=== PATIENT | male | born 1940 | race Caucasian/White ===

== ENCOUNTER 2017-05-25 09:56 | Emergency (ER) | payer MEDICARE ==
[2017-05-25 10:37] LABS: BASOPHILS 0.2 % (0-2); HEMATOCRIT 42.6 % (42.0-54.0); HEMOGLOBIN 14.4 g/dL (13.5-17.5); IMMATURE GRANULOCYTES 0.2 % (0-5); MCH 31.1 pg (26.0-34.0); MCHC 33.8 g/dL (31.0-37.0); MEAN PLATELET VOLUME 10.1 fL (7.4-10.4); NEUTROPHILS 79.6 % (40-80); PLATELET COUNT 168 10x3/uL (130-400); RBC 4.63 10x6/uL (4.20-6.10); RDW 13.2 % (11.5-14.5); WBC 4.8 10x3/uL (4.8-10.8)
[2017-05-25 10:45] LABS: APTT 32.4 SECONDS (22.8-39.4); INR 2.06 (0.85-1.17); PROTIME 23.3 SECONDS (11.6-15.0)
[2017-05-25 10:53] LABS: ALBUMIN 3.1 g/dL (3.4-5.0); ALKALINE PHOSPHATASE 69 U/L (46-116); ALT (SGPT) 24 U/L (10-68); BILIRUBIN - TOTAL 0.47 mg/dL (0.2-1.3); CALC OSMOLALITY 278 mosm/kg (275-300); CALCIUM 8.9 mg/dL (8.5-10.1); CARBON DIOXIDE 26.7 mmol/L (21.0-32.0); CHLORIDE - SERUM 102 mmol/L (98-107); CREATININE - SERUM 0.9 mg/dL (0.6-1.3); GLUCOSE 137 mg/dL (74-106); POTASSIUM - SERUM 4.7 mmol/L (3.5-5.1); PROTEIN - SERUM 6.8 g/dL (6.4-8.2); SODIUM 137 mmol/L (136-145); UREA NITROGEN 20 mg/dL (7-18); eGFR NON AFRICAN AMERICAN 88 mL/min (90-120)
== END 2017-05-25 12:33 | disposition home or self-care (01) ==
LOC: D.ER 09:56
PROVIDERS: Emergency Medicine
DX: Z86.79 Personal history of other diseases of the circulatory system (principal); Z79.01 Long term (current) use of anticoagulants; K92.2 Gastrointestinal hemorrhage, unspecified; I10 Essential (primary) hypertension; R00.1 Bradycardia, unspecified; I44.0 Atrioventricular block, first degree

== ENCOUNTER 2018-01-27 10:51 | Outpatient (CLI) | payer MEDICARE ==
[~2018-01-27] VITALS: Ht 185.4 cm; Wt 133.6 kg
--- NOTE | ~2018-01-27 | OP ---
PATIENT NAME: MARISSA QUARLES MEDICAL RECORD: [id number] :42 LOCATION:[facility] ADMISSION DATE: SURGEON: JULIUS NINA MD DATE OF OPERATION: 01/27/2018 PROCEDURE: Lead portion of permanent pacemaker placement. INDICATION: High-degree AV block with pauses greater than 3 seconds. SURGEON: Dimitry Jiang MD DESCRIPTION OF PROCEDURE: After left subclavian was cannulated via modified Seldinger technique via Dr. Jiang first under fluoroscopic guidance, I placed RV lead in RV apex without difficulty. After adequate R waves and thresholds were obtained, the right atrial lead was placed into the right atrial appendage without difficulty. After adequate P waves and thresholds were obtained, the leads were attached to appropriate poles on the generator and the pocket was closed via Dr. Jiang. IMPRESSION: This is a lead portion of permanent pacemaker placement. ESTIMATED BLOOD LOSS: Minimal. DISPOSITION: To the floor, stable. COMPLICATIONS: None immediately. TRANSINT:[id number] Voice Confirmation ID: [id number] DOCUMENT ID: [id number] 01/30/2018 Edited per arnulfo Oliver. JULIUS NINA MD at 1314 CC: [id number] DICTATION DATE: 01/27/18 1459 OBSERVER HELPER: 01/27/18 1528 [facility] CLI 01/28/[address] [address]
--- NOTE | ~2018-01-27 | OP ---
PATIENT NAME: MARISSA QUARLES MEDICAL RECORD: [id number] :42 LOCATION:[facility] ADMISSION DATE: SURGEON: DIMITRY CHAKRABORTY MD DATE OF OPERATION: 01/27/2018 PREOPERATIVE DIAGNOSES: 1. Bradycardia. 2. Atrial fibrillation. 3. Hypertension. POSTOPERATIVE DIAGNOSES: 1. Bradycardia. 2. Atrial fibrillation. 3. Hypertension. PROCEDURE: Left subclavian vein dual lead pacemaker placement. SURGEON: Dimitry Chakraborty MD CO-SURGEON: Tomas Florez MD REPORT OF OPERATION: The patient's left chest was prepped and draped in sterile fashion. A total of 25 mL of 1% lidocaine with epinephrine was infused into the surrounding tissues. A transverse incision was made in the left superior lateral chest and a subcutaneous pouch was made over the pectoral fascia. The left subclavian vein was accessed times 2 and guidewires were advanced with ease. Fluoro was used to note that the wires were in good position in the venous system. Dilator trocar device was placed over the wires, and the wires and dilators were removed. The leads were advanced through the trocars, and at this point, Dr. Florez positioned the leads appropriately in the atrium and ventricle. Once these were noted to be functioning appropriately, then they were sutured into place with 0 Ti-Cron and affixed to the pacemaker. The pacemaker was placed in the subcutaneous pouch and sutured down to the pectoral fascia using a single 0 Ti-Cron. The wound was irrigated out with antibiotic solution, and the subcutaneous tissues were reapproximated with interrupted 3-0 Vicryl. The skin was closed with running subcutaneous 5-0 Monocryl and dressed appropriately. COMPLICATIONS: None. CONDITION: Stable. ANESTHESIA: Local MAC. BLOOD LOSS: Minimal. TRANSINT:[id number] Voice Confirmation ID: [id number] DOCUMENT ID: [id number] OPERATIVE REPORT [id number] WILLAMDIMITRY GUTIERREZ MD at 1309 CC: [id number] DICTATION DATE: 01/27/18 1503 REGULATORY ASSOCIATE: 01/27/18 1510 [facility] CLI 01/28/18 [place] [address]
--- NOTE | ~2018-01-27 | HEMODYNAMI ---
PATIENT:MARISSA QUARLES MEDICAL RECORD: [id number] : 42 LOCATION:D.CAT ADMISSION DATE: 01/27/18 Generatedon:01/27/201815:05 Patient name: MARISSA QUARLES Patient #: [id number] SSN: : 1940 Date of study: 01/27/2018 Page: Of Hemodynamic Procedure Report Patient Data Patient Demographics Procedure consent was obtained First Name: MARISSA Gender: Male Last Name: [place] : 1940 Middle Initial: D Age: 77 year(s) Patient #: [id number] Race: Unknown Additional ID: [id number] Contact details [address]: [address] [place] [address] [place] State: [place]: [place] Zip code: [address] Admission Admission Data Admission Date: 01/27/2018 Admission Time: 10:51 Procedure Procedure Types Cath Procedure Diagnostic Procedure PPM/ICD PPM Dual Implant Sedation Charges Moderate Sedation up to 15 minutes Procedure Description Procedure Date Procedure Date: 01/27/2018 Procedure Start Time: 14:38 Procedure Staff Name Function Tomas Umanzor MD Performing Physician Dimitry Jiang MD Assisting physician Sylvie Stein RT Monitor Leo Schwartz RN Nurse Hardik Alas RT Scrub Procedure Data Cath Procedure Fluoroscopy Diagnostic fluoroscopy Total fluoroscopy Time: 1.3 time: 1.3 min min Diagnostic fluoroscopy Total fluoroscopy dose: 70 dose: 70 mGy mGy Estimated blood loss: 5 ml Procedure Complications No complications Procedure Medications Medication Administration Route Dosage Ancef (1Gm/50ml NS) I.V.P.B 1 g Oxygen NC 2 l/min Lidocaine 1% with added to field 20 ml Epi Bupivacaine 0.5% S.Q. 10 ml Ancef Irrigation Topical 1 g (1gm/500ml NS) Versed I.V. 1 mg Fentanyl I.V. 50 mcg Versed I.V. 1 mg Fentanyl I.V. 50 mcg Hemodynamics Rest Heart Rate: 46 (bpm) Snapshots Pre Cath Intra NCS Post Cath Vital Signs Time Heart Resp SPO2 etCO2 NIBP (mmHg) Rhythm Pain Sedation Rate (ipm) (%) (mmHg) Status Level (bpm) 14:23:10 46 12 97 38.1 192/99(175) A-Fib 0 (11) 10(A) , No pain 14:28:03 48 15 96 40.3 196/103(176) A-Fib 0 (11) 10(A) , No pain 14:32:57 49 15 95 42.6 203/100(195) A-Fib 0 (11) 10(A) , No pain 14:41:30 78 17 94 46.2 180/87(141) A-Fib 0 (11) 10(A) , No pain 14:46:02 51 15 95 57.4 142/73(124) A-Fib 0 (11) 10(A) , No pain 14:50:30 61 17 95 50 141/87(114) Paced 0 (11) 10(A) , No pain 14:54:57 66 16 96 47 141/87(131) Paced 0 (11) 10(A) , No pain 14:59:25 63 15 95 47 145/80(130) Paced 0 (11) 10(A) , No pain 15:03:43 66 20 96 47 139/81(121) Paced 0 (11) 10(A) , No pain Medications Time Medication Route Dose Verified Delivered Reason Notes Effectiv eness by by 14:28:20 Ancef I.V.P.B 1 g Tomas Buffie used for (1Gm/50ml St Wilfrid Schwartz RN procedure NS) 14:34:03 Oxygen NC 2 Tomas Sinaiie used for l/min [facility] Wilfrid Schwartz RN procedure 14:34:10 Lidocaine added 20 ml Tomas Moraes for local 1% with Epi to St Wilfrid Jiang MD anesthetic field 14:34:20 Bupivacaine S.Q. 10 ml Tomas Moraes for local 0.5% St Wilfrid Jiang MD anesthetic 14:34:30 Ancef Topical 1 g Tomas Ramirezian used for Irrigation St Wilfrid Jiang MD procedure (1gm/500ml NS) 14:36:43 Versed I.V. 1 mg T[address]ie for [facility] Wilfrid Schwartz RN sedation 14:36:49 Fentanyl I.V. 50 [address] Sinai[address] for mcg [address] Wilfrid Schwartz RN sedation 14:39:04 Versed I.V. 1 mg Tomas Oshea RN sedation 14:39:08 Fentanyl I.V. 50 Tomas nair [facility] Schwartz RN sedation Procedure Log Time Note 14:04:30 Time tracking: Regular hours (M-F 7:00 - 5:00) 14:04:34 Plan of Care:Hemodynamics will remain stable., Cardiac rhythm will remain stable., Comfort level will be maintained., Respiratory function will remain adequate., Patient/ family verbilizes understanding of procedure., Procedure tolerated without complication., Recovers from procedure without complications.. 14:06:46 Sylvie Counts RT(R) sent for patient. Start room use. 14:12:45 Patient received from Pre/Post Procedure Room to CCL 3 Alert and oriented. Tansferred to table in Supine position. 14:12:46 Warm blankets applied, and silvia hugger turned on for patient comfort. 14:12:47 Correct patient and procedure confirmed by team. 14:12:48 Signed procedure consent form obtained from patient. 14:12:49 ECG and BP/O2 sat monitors applied to patient. 14:20:05 Vital chart was started 14:22:59 Baseline sample Acquired. 14:23:02 Rhythm: sinus bradycardia 14:23:03 Full Disclosure recording started 14:23:16 H&P Date Dictated: 01/21/2018 Within 30 days and on chart., H&P Addendum completed by physician on day of procedure. (MUST COMPLETE FOR ALL OUTPATIENTS). 14:23:17 Pre-procedure instructions explained to patient. 14:23:18 Pre-op teaching completed and patient verbalized understanding. 14:23:20 Family in waiting room. 14:23:21 Patient NPO since Midnight. 14:23:24 Is the patient allergic to Iodine/contrast media? No. 14:23:28 Is patient on blood thinner?Yes 14:23:54 COUMADIN LAST DOSE 01/22/18 14:23:55 Patient diabetic? No. 14:23:58 Previous problem with sedation/anesthesia? No ? 14:23:59 Snore? Yes 14:24:00 Sleep apnea? No 14:24:00 Deviated septum? No 14:24:01 Opens mouth fully? Yes 14:24:08 Sticks out tongue? Yes 14:24:10 Airway obstruction? No ? 14:24:15 Dentures? Yes IN 14:24:23 Patient pain scale 0/10 ?. 14:24:39 IV started by Leo Schwartz RN inleft hand with a 22 gauge IV catheter with 0.9% NaCl at KVO. 14:24:50 Lab results completed and on chart. 14:24:55 Left chest area was prepped with chlora-prep and draped in sterile fashion 14:24:56 Alarms reviewed by R. N. 14:24:56 Sharps counted by scrub and verified by R.N. 14:28:20 Ancef (1Gm/50ml NS) 1 g I.V.P.B was administered by Leo Schwartz RN; used for procedure; 14:32:16 Medtronic Advisa MRI PPM Dual Generator [id number] opened to sterile field. 14:32:31 Medtronic 4574-53 PPM Lead opened to sterile field. 14:32:31 Medtronic 4074-58 PPM Lead opened to sterile field. 14:34:03 Oxygen 2 l/min NC was administered by Leo Schwartz RN; used for procedure; 14:34:10 Lidocaine 1% with Epi 20 ml added to field was administered by Dimitry Jiang MD; for local anesthetic; 14:34:20 Bupivacaine 0.5% 10 ml S.Q. was administered by Dimitry Jiang MD; for local anesthetic; 14:34:29 Use device set MYLENE PPM 14:34:30 Ancef Irrigation (1gm/500ml NS) 1 g Topical was administered by Dimitry Jiang MD; used for procedure; 14:34:32 2-0 Ticron Multipack ([id number]) opened to sterile field. 14:34:34 3-0 Vicryl Single Pack [id number] opened to sterile field. 14:34:34 5-0 Monocryl PS2 [id number] opened to sterile field. 14:34:35 Cautery Tip Alarm Signal Operator opened to sterile field. 14:34:35 Cautery Pushbutton Pencil opened to sterile field. 14:34:36 Mepilex Dressing ([id number]) opened to sterile field. 14:34:37 Immobilizer Extra Large opened to sterile field. 14:34:47 Medtronic customer retention representative PILAR JENELLE present for procedure. 14:34:57 Pre sharps counted by scrub and verified by RN: Sutures: 7; Sponges: 5; Stick needles: 2; Skin needles: 2; Blade: 1; Cautery: 1 14:35:01 Grounding pad site Left thigh. 14:35:02 Grounding pad site free from injury. 14:35:05 Final Timeout: patient, procedure, and site verified with staff and physician. All members of the team are in agreement. 14:35:12 Left chest site verified by team. 14:35:14 Physical assessment completed. ASA score P 2 - A patient with mild systemic disease as per Tomas Umanzor MD. 14:35:18 Sedation plan: IV Moderate Sedation Medication:Versed, Fentanyl 14:36:43 Versed 1 mg I.V. was administered by Leo Schwartz RN; for sedation; 14:36:49 Fentanyl 50 mcg I.V. was administered by Leo Schwartz RN; for sedation; 14:37:20 Vital chart was stopped 14:38:48 Lidocaine 1% w/epi and Bupivacaine 0.5% was administered to left subclavicular area by Dimitry Jiang MD . 14:38:54 Vital chart was started 14:39:04 Versed 1 mg I.V. was administered by Leo Schwartz RN; for sedation; 14:39:08 Fentanyl 50 mcg I.V. was administered by Leo Schwartz RN; for sedation; 14:40:11 Incision made to left subclavicular area. 14:41:41 Generator pocket made/opened. 14:43:51 Left subclavian vein accessed with 7Fr Peel Away Sheath. 14:43:59 Ventricular lead inserted and advanced. 14:44:01 Left subclavian vein accessed with 7Fr Peel Away Sheath. 14:44:03 Atrial lead inserted and advanced. 14:45:32 Ventricular lead positioned. 14:47:25 Ventricular lead tested. 14:51:32 Atrial lead positioned. 14:51:33 Peel-a-way sheath was split and removed. 14:51:34 Peel-a-way sheath was split and removed. 14:51:41 Atrial lead attachment was completed with 2-0 ticron. 14:53:00 Ventricular lead attachment was completed with 35mm [place] [facility]. 14:53:52 PPM Dual was inserted subcutaneously to left chest. 14:54:50 Parameters-- Generator: Mode: DDDR. Lower Rate: 60bpm. Upper Rate: 130bpm. 14:55:15 Parameters--Ventricular P/R Wave: 16.5mV. Current: 0.5mA; Threshold: 0.6V; Impedence: 1867OHMS. 14:55:29 Generator was sutured in place with 2-0 ticron. 14:55:32 Device pocket was irrigated with Ancef. 14:55:41 Subcutaneous closure was completed with 3-0 vicryl. 14:55:56 Parameters--Atrial P/R Wave: 2.9mV. Current: 0.7mA; Threshold: 0.5V; Impedence: 628OHMS. 14:57:03 Skin closure was completed with 5-0 monocryl. 14:57:07 Lt Chest incision was dressed with Mepilex dressing. 14:57:19 Procedure ended.(Physican Out) 14:57:24 Fluoroscopy time 01.30 minutes. 14:57:30 Fluoroscopy dose: 70 mGy 14:57:30 Flurop Dose total: 70 14:57:32 Sharps counted by scrub and verified by R.N. 14:57:50 Post sharps counted by scrub and verified by RN: Sutures: 7; Sponges: 5; Stick needles: 2; Skin needles: 2; Blade: 1; Cautery: 1 14:58:12 Insertion/operative site no bleeding no hematoma. 14:58:25 Post Chest area:stable, clean and dry 14:58:30 Post-procedure physical assessment completed. ASA score P 2 - A patient with mild systemic disease as per Tomas Umanzor MD. 14:58:34 Post procedure rhythm: paced 14:58:37 Estimated blood loss: 5 ml 14:58:38 Post procedure instruction explained to patient.Patient verbalizes understanding. 14:58:38 Patient needs reinforcement of post procedure teaching. 14:59:06 Procedure type changed to Cath procedure, Diagnostic procedure, PPM/ICD, PPM Dual Implant, Sedation Charges, Moderate Sedation up to 15 minutes 14:59:16 Procedure Complication : No complications 14:59:21 See physician's report for complete and final results. 15:00:47 Procedure and supply charges have been captured, reviewed, submitted and are correct. 15:02:07 Report given to PCU. 15:03:40 Patient transfered to PCU with Bed. 15:03:43 End room use (Document Last) 15:05:44 Vital chart was stopped Device Usage Item Name Manufacture Quantity Catalog Hospital Part Current Minimal Lot# / Number Charge Number Stock Stock Serial# Code Medtronic Medtronic 1 [id number] 5 SN Advisa MRI [id number] PPM Dual EXP Generator 2019-03-21 A2DR01 Medtronic Medtronic 1 4574-53 [id number] [id number] 5 SN 4574-53 PPM [id number] Lead EXP 2019-08-08 Medtronic Medtronic 1 4074-58 384129 169363 5 SN 4074-58 PPM [id number] Lead EXP 2019-07-01 2-0 Ticron Ethicon 5 [id number] 298923 86493 [id number] 5 Multipack ([id number]) 3-0 Vicryl Ethicon 1 [id number] 351644 382066 042839 5 Single Pack [id number] 5-0 Monocryl Ethicon 1 Y495G 694554 855005 752050 5 PS2 Y495G Cautery Tip Microtek 1 [id number] 543339 339990 737678 5 Alarm Signal [employer] Cautery Microtek 1 [id number] 905325 11191 [id number] 5 Pushbutton [employer] Pencil Mepilex Cardinal 1 [id number] 742871 234346 012381 5 Dressing Health (636358) Immobilizer Cardinal 1 [id number] 065581 199452 [id number] 5 Extra Large Health Signature Audit [place] Stage Time Signature Unsigned Intra-Procedure 01/27/2018 Sylvie 3:05:41 PM Counts RT(R) Signatures Monitor : Sylvie Signature : Counts RT Date : Time : [place] [address]
[2018-01-27] MEDS ORDERED: TIROSINT88 MCG PO (11:22)
[2018-01-27] MEDS ORDERED: COUMADIN3 MG PO (11:23)
[2018-01-27] MEDS ORDERED: COUMADIN2 MG PO (11:24)
[2018-01-27] MEDS ORDERED: CELEXA40 MG PO (11:24)
[2018-01-27] MEDS ORDERED: PRINIVIL20 MG PO (11:24)
[2018-01-27] MEDS ORDERED: BAYER CHEWABLE81 MG PO (11:25)
[2018-01-27 11:32] VITALS: BP 199/93; BMI 38.8
[2018-01-27 11:49] LABS: HEMATOCRIT 42.9 % (42.0-54.0); HEMOGLOBIN 14.3 g/dL (13.5-17.5); MCH 30.2 pg (26.0-34.0); MCHC 33.3 g/dL (31.0-37.0); MCV 90.7 fL (80.0-100.0); RBC 4.73 10x6/uL (4.20-6.10); RDW 13.1 % (11.5-14.5)
[2018-01-27 11:52] LABS: CALC OSMOLALITY 283 mosm/kg (275-300); CALCIUM 8.6 mg/dL (8.5-10.1); CARBON DIOXIDE 29.9 mmol/L (21.0-32.0); CHLORIDE - SERUM 105 mmol/L (98-107); CREATININE - SERUM 0.9 mg/dL (0.6-1.3); GLUCOSE 114 mg/dL (74-106); POTASSIUM - SERUM 3.9 mmol/L (3.5-5.1); SODIUM 140 mmol/L (136-145); UREA NITROGEN 23 mg/dL (7-18); eGFR NON AFRICAN AMERICAN 87 mL/min (90-120)
[2018-01-27 11:54] LABS: APTT 26.7 SECONDS (22.8-39.4)
[2018-01-27 12:03] LABS: INR 1.3 (0.85-1.17); PROTIME 15.8 SECONDS (11.6-15.0)
[2018-01-27 15:51] VITALS: BP 146/84
[2018-01-27 16:03] VITALS: BP 145/84; Ht 185.4 cm; Wt 133.6 kg
[2018-01-27 20:00] VITALS: BP 133/87
[2018-01-28] VITALS: BP 133/73
[2018-01-28 04:00] VITALS: BP 124/80
[2018-01-28 07:51] VITALS: BP 129/66
[2018-01-28 11:25] VITALS: BP 136/71
== END 2018-01-28 12:11 | disposition home or self-care (01) ==
LOC: D.CATH 10:51 → D.M2 15:43 → D.CATH 15:44 → D.M2 15:44 → D.CATH 01-28 12:11
PROVIDERS: Internal Medicine Interventional Cardiology
DX: I49.5 Sick sinus syndrome (principal); I10 Essential (primary) hypertension; Z01.812 Encounter for preprocedural laboratory examination

== ENCOUNTER → 2018-11-04 09:49 | Outpatient (CLI) | payer OTHER ==
[2018-01-27 16:03] VITALS: BMI 38.8
--- NOTE | ~2018-11-04 | EC ---
PATIENT:MARISSA QUARLES DATE OF SERVICE: 11/04/18 SEX: M MEDICAL RECORD: [id number] DATE OF : 44 LOCATION:[facility] AGE OF PATIENT: 77 ADMISSION DATE: 11/04/18 REFERRING PHYSICIAN: INTERPRETING PHYSICIAN: JULIUS NINA MD ECHOCARDIOGRAM REPORT ECHO CHARGES 4 ECHO COMPLETE Date: 11/04/18 CLINICAL DIAGNOSIS: MR/TR H/O HTN/PACEMAKER ECHOCARDIOGRAPHIC MEASUREMENTS (adult normal given) AC root (d.<3.7cm) 4.0 cm LV Septum d (<1.2 cm> 1.5 cm Valve Excursion 1.6 cm LV Septum (systole) 2.1 cm Left Atria (s.<4.0cm> 4.6 cm LVPW d(<1.2cm) 1.5 cm RV (d.<2.3cm) 3.4 cm LVPW (sytole) 2.3 cm LV diastole(<5.6CM) 5.1 cm MV E-F(>70mm/sec) cm LV systole 3.6 cm LVOT Diameter 2.1 cm MV exc.(>10mm) cm Est.ejection fraction (50-75%) % DOPPLER: LVIT cm/sec A 59.0 cm/sec E 105 cm/sec LA cm/sec RVSP 35.1 mmHg LVOT 97.0 cm/sec AOP1/2T m/s Asc. Ao 158 cm/sec RVOT 66.0 cm/sec RA cm/sec PA 93.0 cm/sec AV Gradient Peak 9.9 mmHg AV Mean 4.5 mmHg AV Area 1.8 cm MV Gradient Peak 4.6 mmHg MV Mean 1.8 mmHg MV Area cm COMMENTS: OP - HC Other Spatial Scientist: 1 DAWNA JENELLE Biometrics Analyst: 3 Dr. Florez TAPE# PACS Pericardial Effusion Y DATE OF SERVICE: Adequate 2-D echo, color flow and spectral Doppler, and M-mode LVH is present. LV internal dimensions are normal. LV is mildly globally hypokinetic with reduced EF, estimated EF 35% to 40%. Aortic valve sclerosis without stenosis by Doppler interrogation. Left atrium is dilated at 4.6 cm. Mitral valve shows no prolapse. Mild MR. Right-sided chamber is grossly normal. Trace TR. ECHOCARDIOGRAM REPORT [id number] MARISSA QUARLES TRANSINT:[id number] Voice Confirmation ID: [id number] DOCUMENT ID: [id number] JULIUS NINA MD CC: [id number] DICTATION DATE: 11/10/18 1127 DEFENCE FORCE SENIOR OFFICER: 11/10/18 1208 [facility] CLI 11/04/18 [place] [id number]
[~2018-11-04 09:49] MED LIST: BAYER CHEWABLE81 MG PO; CELEXA40 MG PO; COUMADIN2 MG PO; COUMADIN3 MG PO; PRINIVIL20 MG PO; TIROSINT88 MCG PO
== END | disposition home or self-care (01) ==
LOC: D.HCCARDIO 09:49
PROVIDERS: ATTEND Internal Medicine Interventional Cardiology
DX: I49.5 Sick sinus syndrome (principal)

== ENCOUNTER → 2020-05-31 10:07 | Outpatient (CLI) | payer OTHER ==
[2018-01-27 16:03] VITALS: BMI 38.8
--- NOTE | 2020-06-02 08:55 | EC ---
PATIENT:MARISSA QUARLES DATE OF SERVICE: 05/31/20 SEX: M MEDICAL RECORD: [id number] DATE OF : 44 [facility] AGE OF PATIENT: 79 ADMISSION DATE: 05/31/20 REFERRING PHYSICIAN: INTERPRETING PHYSICIAN: JULIUS NINA MD ECHOCARDIOGRAM REPORT ECHO CHARGES 4 ECHO COMPLETE Date: 05/31/20 CLINICAL DIAGNOSIS: HTN/CAD ASSESS MITRAL REGURG/AORTIC SCL. AND EF ECHOCARDIOGRAPHIC MEASUREMENTS (adult normal given) AC root (d.<3.7cm) 4.0 cm LV Septum d (<1.2 cm> 1.7 cm Valve Excursion 1.9 cm LV Septum (systole) 2.5 cm Left Atria (s.<4.0cm> 4.9 cm LVPW d(<1.2cm) 1.8 cm RV (d.<2.3cm) 3.5 cm LVPW (sytole) 2.5 cm LV diastole(<5.6CM) 5.9 cm MV E-F(>70mm/sec) cm LV systole 3.1 cm LVOT Diameter 2.1 cm MV exc.(>10mm) 1.6 cm Est.ejection fraction (50-75%) % DOPPLER: LVIT cm/sec A 43.0 cm/sec E 90.0 cm/sec LA cm/sec RVSP 16 mmHg LVOT 57 cm/sec AOP1/2T m/s Asc. Ao 147 cm/sec RVOT 75 cm/sec RA cm/sec PA 115 cm/sec AV Gradient Peak 8.63 mmHg AV Mean 5.46 mmHg AV Area 1.4 cm MV Gradient Peak 4.36 mmHg MV Mean 1.24 mmHg MV Area cm COMMENTS: Blocker Hand: 2 OMID CHRISTY Rubber Flap Tuber Machine Operator: 3 Dr. Florez TAPE# PACS Pericardial Effusion N DATE OF SERVICE: Adequate 2D, color flow imaging, spectral Doppler, and M-Mode. LVH is present. LV internal dimension is dilated. LV is globally hypokinetic with more marked anterior apical hypokinesis. Overall LV function reduced 35%. Aortic valve is sclerosed without stenosis by Doppler interrogation. Left atrium is dilated at 4.9 cm. Mitral valve shows prolapse with posterior leaflet. Mild MR. Right-sided chambers are grossly normal. Mild TR. TRANSINT:[id number] Voice Confirmation ID: [id number] DOCUMENT ID: [id number] ECHOCARDIOGRAM REPORT [id number] MARISSA QURALES,JULIUS Hernandez MD at 0855 CC: [id number] DICTATION DATE: 06/01/201425 RN ONCOLOGY CLINICAL: 06/01/207 [facility] CLI 05/31/20 [place] [id number]
== END | disposition home or self-care (01) ==
LOC: D.HCCECHO 10:07
PROVIDERS: ATTEND Internal Medicine Interventional Cardiology
DX: I48.91 Unspecified atrial fibrillation (principal)